=== PATIENT | female | born 1990 ===

== ENCOUNTER 2017-11-03 14:54 | Emergency (ER) | payer MEDICAID ==
[2017-11-03 15:22] VITALS: O2SAT 99
[2017-11-03] MEDS ORDERED: Sodium Chloride 0.9% 1,000 ML IV STA (15:49)
[2017-11-03] MEDS ORDERED: Metoclopramide 5 mg/5 ml Oral Sol PO STA (15:52)
[2017-11-03] MEDS ORDERED: DiphenhydrAMINE 50 mg/ml Inj IVP STA (15:52)
--- NOTE | 2017-11-03 15:53 | ED PDOC ---
Arrival/HPI - General Chief Complaint: Headache Time Seen by Provider: 11/03/17 15:18 Historian: Patient - History of Present Illness Narrative History of Present Illness (Text): 11/03/17 15:53 This 27 yo female with pmh migraines, presents to this emergency department complaining of Headaches x 3 days. Patient stated ROBERTSON is similar to previous times. Patient stated she has been living in a senior care with her kids, and she thinks this might have triggered it. She denies other complains. Denies fever , syncope, skin rash, shortness of breath, chest pain, abdominal pain, urinary symptoms, abdominal pain, or abnormal gait. Time/Duration: Other (see hpi) Context: Home Past Medical History - Provider Review Nursing Documentation Reviewed: Yes - Infectious Disease Hx of Infectious Diseases: None - Reproductive Menopause: No - Cardiac Hx Cardiac Disorders: No - Psychiatric Hx Psychophysiologic Disorder: No Hx Substance Use: No - Anesthesia Hx Anesthesia Reactions: No Family/Social History - Physician Review Nursing Documentation Reviewed: Yes Family/Social History: Other (noncontributory) Smoking Status: Unknown If Ever Smoked Hx Alcohol Use: No Hx Substance Use: No Allergies/Home Meds Allergies/Adverse Reactions: Allergies No Known Allergies Allergy (Verified 11/03/17 15:23) Review of Systems - Review of Systems Constitutional: Normal. absent: Fatigue, Weight Change, Fevers, Night Sweats Eyes: Normal ENT: Normal Respiratory: Normal. absent: SOB, Cough Cardiovascular: Normal. absent: Chest Pain, Palpitations Gastrointestinal: Normal. absent: Abdominal Pain, Nausea, Vomiting Genitourinary Female: Normal. absent: Dysuria, Frequency, Hematuria, Vaginal Bleeding, Vaginal Discharge Musculoskeletal: Normal. absent: Back Pain, Neck Pain Skin: Normal. absent: Rash Neurological: Headache. absent: Dizziness, Focal Weakness, Gait Changes, Speech Changes, Facial Droop, Disequilibrium, Seizure Endocrine: Normal Hemo/Lymphatic: Normal Psychiatric: Normal Physical Exam Vital Signs Temp Pulse Resp BP Pulse Ox 11/03/17 15:32 98.0 F 60 17 90/57 L 99 11/03/17 15:19 98.6 F 75 18 97/63 L 99 Temperature: Afebrile Blood Pressure: Normal Pulse: Regular Respiratory Rate: Normal Appearance: Positive for: Well-Appearing, Non-Toxic, Comfortable Pain Distress: None Mental Status: Positive for: Alert and Oriented X 3 - Systems Exam Head: Present: Atraumatic, Normocephalic Pupils: Present: PERRL Extroacular Muscles: Present: EOMI Conjunctiva: Present: Normal Mouth: Present: Moist Mucous Membranes Pharnyx: Present: Normal. No: ERYTHEMA, EXUDATE, TONSILS ENLARGED Neck: Present: Normal Range of Motion. No: Meningeal Signs, MIDLINE TENDERNESS , Paraspinal Tenderness, Lymphadenopathy, Trachea Midline Respiratory/Chest: Present: Clear to Auscultation, Good Air Exchange. No: Respiratory Distress, Accessory Muscle Use, Wheezes, Retracting, Rhonchi, Tachypneic Cardiovascular: Present: Regular Rate and Rhythm, Normal S1, S2. No: Murmurs Abdomen: No: Tenderness, Distention, Peritoneal Signs, Rebound, Guarding Back: Present: Normal Inspection. No: CVA Tenderness Upper Extremity: Present: Normal Inspection, Normal ROM. No: Cyanosis, Edema Lower Extremity: Present: Normal Inspection, Normal ROM. No: Edema Neurological: Present: GCS=15, CN II-XII Intact, Speech Normal, Motor Func Grossly Intact, Normal Sensory Function, Normal Cerebellar Funct, Gait Normal, Memory Normal Skin: Present: Warm, Dry, Normal Color. No: Rashes Psychiatric: Present: Alert, Oriented x 3, Normal Insight, Normal Concentration Medical Decision Making ED Course and Treatment: 11/03/17 17:34 Re-evaluation. Patient feels better. Discussed results and plan with patient who expresses understanding. All questions answered and there is agreement with the plan to discharge home with instructions. Patient stable for discharge. Return if symptoms persist or worsen. Patient denies ROBERTSON at this time. Patient requested food. She stated she did not eat today. Re-evaluation Time: 17:34 Reassessment Condition: Re-examined, Improved - Lab Interpretations Lab Results: Lab Results 11/03/17 16:21: Urine Color Yellow, Urine Appearance Clear, Urine pH 6.5, Ur Specific [place] 1.010, Urine Protein Negative, Urine Glucose (UA) Negative, Urine Ketones Negative, Urine Blood Negative, Urine Nitrate Negative, Urine Bilirubin Negative, Urine Urobilinogen 0.2, Ur Leukocyte Esterase Negative - Medication Orders Current Medication Orders: Discontinued Medications Diphenhydramine HCl (Benadryl) 25 mg IVP STAT STA Stop: 11/03/17 15:53 Last Admin: 11/03/17 16:12 Dose: 25 mg IVP Administration Document 11/03/17 16:12 HI (Rec: 11/03/17 16:12 [id number] Charges for Administration # of IVP Administrations 1 Sodium Chloride (Sodium Chloride 0.9%) 1,000 mls @ 999 mls/hr IV .Q1H1M STA Stop: 11/03/17 16:49 Last Admin: 11/03/17 16:12 Dose: 999 mls/hr eMAR Start Stop Document 11/03/17 16:12 HI (Rec: 11/03/17 16:12 [id number] Intravenous Solution Start Date 11/03/17 Start Time 16:12 Metoclopramide HCl (Reglan) 10 mg IVP STAT STA Stop: 11/03/17 16:10 Last Admin: 11/03/17 16:18 Dose: 10 mg IVP Administration Document 11/03/17 16:18 HI (Rec: 11/03/17 16:18 [id number] Charges for Administration # of IVP Administrations 1 Disposition/Present on Arrival - Present on Arrival Any Indicators Present on Arrival: No History of DVT/PE: No History of Uncontrolled Diabetes: No Urinary Catheter: No History of Decub. Ulcer: No History Surgical Site Infection Following: None - Disposition Have Diagnosis and Disposition been Completed?: Yes Diagnosis: Headache Disposition: HOME/ ROUTINE Disposition Time: 17:34 Patient Plan: Discharge Patient Problems: Current Active Problems Problem Status Onset Headache Acute Condition: GOOD Discharge Instructions (ExitCare): Headache, Adult (DC) Additional Instructions: Call private doctor for follow up visit in 1-2 days. Take medication as instructed. Eat healthy, and rest. Return to emergency if symptoms returns. Prescriptions: Cyclobenzaprine [Cyclobenzaprine HCl] 10 mg PO DAILY #5 tab Ibuprofen [Motrin] 600 mg PO Q8 PRN #20 tab PRN Reason: Pain, Severe (8-10) Referrals: Michelle Downing MD [Staff Provider] - Follow up with primary [facility] [Outside] - Follow up with primary Forms: [employer] ([place])
[2017-11-03 16:25] LABS: PH,URINE 6.5 (4.7-8.0); URINE BILIRUBIN NEGATIVE (NEGATIVE); URINE BLOOD NEGATIVE (NEGATIVE); URINE GLUCOSE (UA) NEGATIVE (NEGATIVE); URINE LEUKOCYTE ESTERASE NEGATIVE Leu/uL (NEGATIVE); URINE PROTEIN NEGATIVE mg/dL (<30 mg/dL); URINE UROBILINOGEN 0.2 E.U./dL (<1 E.U./dL)
[2017-11-03 16:28] LABS: URINE APPEARANCE CLEAR (CLEAR); URINE COLOR YELLOW (YELLOW)
[2017-11-03 23:34] VITALS: BP 108/72; PULSE 72; RESP 18; TEMP 98.2
== END 2017-11-03 17:45 | disposition home or self-care (01) ==
LOC: MERGE 14:54 → ED 14:54
DX: R51 Headache (principal)
CPT/HCPCS: 81003; 81025; 96374; 96375; 99285; J1200; J2765; J7030